=== PATIENT | male | born 1990 | race Two or more races ===

== ENCOUNTER 2016-12-20 03:18 | Emergency (ER) | payer MEDICAID ==
[~2016-12-20] VITALS: Ht 175.3 cm; Wt 90.7 kg
== END 2016-12-20 04:30 | disposition home or self-care (01) ==
LOC: ER 03:21
DX: M25.512 Pain in left shoulder (principal); F17.200 Nicotine dependence, unspecified, uncomplicated; Z88.2 Allergy status to sulfonamides
CPT/HCPCS: 73030; A4663; J1170; J2550